=== PATIENT | female | born 1985 | race Caucasian/White ===

== ENCOUNTER 2017-04-09 20:39 | Inpatient (IN) ==
[2017-04-09 21:07] LABS: Bilirubin,Urine Negative (Negative); Blood,Urine Negative (Negative); Clarity,Urine Clear (Clear); Color,Urine Yellow (Yellow); Glucose,Urine (UA) Normal (Normal); Ketones,Urine Negative (Negative); Leukocyte Esterase,Urine Negative (Negative); Nitrite,Urine Negative (Negative); Protein,Urine Negative (Neg-Trace); Specific Gravity,Urine > 1.030 (1.010-1.025); Urobilinogen,Urine Normal (Normal)
[2017-04-09 21:09] LABS: Basophils # 0.1 K/mcL (0.0-0.2); Basophils % 0.4 %; Eosinophils # 0.1 K/mcL (0.0-0.6); Eosinophils % 0.6 %; Hematocrit 42.2 % (35.3-44.9); Hemoglobin 13.8 g/dL (11.5-15.4); Immature Granulocytes % 0.2 % (0-4); Lymphocytes # 5.6 K/mcL (0.6-4.6); Lymphocytes % 40.9 %; Mean Corpuscular HGB Conc 32.7 g/dL (31.6-35.5); Mean Corpuscular Hemoglobin 29.8 pg (28.0-33.3); Mean Corpuscular Volume 91.1 fL (83.0-100.0); Mean Platelet Volume 10.6 fL (9.4-12.4); Monocytes % 6.9 %; Platelet Count 255 K/mcL (140-400); Red Blood Count 4.63 M/mcL (3.82-4.97); Red Cell Distribution Width 13.4 % (11.5-14.5)
[2017-04-09 21:12] LABS: Amphetamine Screen,Urine Negative ng/mL (Cutoff=1000); Barbiturate Screen,Urine Negative ng/mL (Cutoff=200); Benzodiazepines Screen,Urine Negative ng/mL (Cutoff=200); Cannabinoid Screen,Urine Negative ng/mL (Cutoff = 50); Cocaine Screen,Urine Negative ng/mL (Cutoff= 300); Opiate Screen,Urine Negative ng/mL (Cutoff=300); Phencyclidine Screen,Urine Negative ng/mL (Cutoff=25)
[2017-04-09 21:19] LABS: Calcium 9.2 mg/dL (8.6-10.3); Carbon Dioxide 21 mEq/L (23-29); Chloride 114 mEq/L (98-107); Potassium 3.9 mEq/L (3.5-5.1); Sodium 143 mEq/L (136-145)
[2017-04-09 21:24] LABS: Acetaminophen < 1.0 mcg/mL (10-30); Ethanol < 10 mg/dL (0-10); Salicylate < 5.0 mg/dL (15.0-30.0)
[2017-04-09 21:25] LABS: BUN/Creatinine Ratio 23 (6-26); Blood Urea Nitrogen 16 mg/dL (6-20); Glucose 116 mg/dL (70-105); Osmolality,Calculated 298 (280-300); eGFR For African Americans > 60 (> 60); eGFR For Non-African Americans > 60 (> 60)
--- NOTE | 2017-04-10 01:02 | Emergency Department Note ---
Disposition Clinical Impression: Suicidal ideation Disposition: Admitted As Inpatient Condition: Good Referrals: NONE,PCP [Primary Care Provider] - Time of Disposition: 01:34 Psych HPI - General Chief Complaint: ED Psychiatric Symptoms Stated Complaint: SI Time Seen by Provider: 04/09/17 21:44 Source: patient Nursing Notes Reviewed: Yes Vital Signs Reviewed: Yes - History of Present Illness Pt complaint: suicidal ideation If medical clearance, reason: psychiatric condition Onset (ago): month(s) Duration: getting worse History of similar episodes: Yes Improves with: none Worsens with: none Context: significant life stressor Alleged intoxication: No Associated Psychiatric Symptoms: depression, suicidal ideation Associated symptoms: Reports: headache Traumatic symptoms: denies traumatic injury Treatments prior to arrival: none Self harm or harm to others: admits thoughts of self harm, has plan - Related Data Home Medications Medication Instructions Recorded Confirmed Citalopram [CeleXA] 240 mg PO DAILY 09/25/15 09/25/15 Divalproex (12 HR) [Depakote (12 500 mg PO BID 09/25/15 09/25/15 HR)] Gabapentin [Neurontin] 100 mg PO TID 09/25/15 09/25/15 Topiramate [Topamax] 200 mg PO BID 09/25/15 09/25/15 Previous Rx's Medication Instructions Recorded DiphenhydraMINE [Benadryl] 50 mg PO Q6HR #30 capsule 09/25/15 Sulfamethoxazole/Trimeth DS 1 each PO BID #20 tablet 09/25/15 [Bactrim DS] Allergies Allergy/AdvReac Type Severity Reaction Status Date / Time meperidine [From Demerol] Allergy Vomiting Verified 09/25/15 00:03 All systems ED: reviewed and negative except as stated. Review of Systems: As Per HPI Constitutional: Denies: fever, chills Eyes: Denies: vision change ENT ED: Denies: throat pain Cardiovascular: Denies: palpitations Respiratory: Denies: dyspnea Gastrointestinal: Denies: abdominal pain, nausea, vomiting Genitourinary: Denies: dysuria Musculoskeletal: Denies: back pain Integumentary: Denies: rash Neurological: Reports: as per HPI Psychiatric: Reports: as per HPI Endocrine: Denies: fatigue Hematological/Lymphatic: Denies: easy bleeding Allergic/Immunologic: Denies: facial swelling Past Medical History - Past Medical History Medical history: Reports: migraine, seizures Psychiatric history: Reports: anxiety, bipolar, depression, PTSD - Social History Smoking Status: Never smoker Smokeless Tobacco Status: No Alcohol use: Reports: none Drug use: Reports: none Physical Exam GENERAL: alert and oriented, well appearing, no acute distress, HEAD: atraumatic, normocephalic EYE: EOM intact, no conjunctival injection ENT: mucous membranes moist, voice normal in character, nose normal in appearance, no rhinorrhea, oropharynx normal in appearance NECK: supple, normal ROM without stiffness CHEST: symmetric chest wall rise RESPIRATORY: Present: normal lung sounds bilaterally, no respiratory distress CARDIOVASCULAR: Regular rate ABDOMINAL EXAM: No evidence of abdominal discomfort or peritoneal signs; Absent : guarding, rebound, distention EXTREMITIES: Grossly unremarkable on simple inspection; no deformities or decreased ROM; Absent: BLE edema NEURO: alert, moves all extremities, no focal deficits SKIN: warm, dry, intact, normal color for age and race; no concerning rashes or lesions - General Limitations: no limitations General appearance: alert - Psychiatric Psychiatric exam: Present: normal affect, depressed, suicidal ideation Course Vital Signs Temperature 98.2 F 04/09/17 20:40 Pulse Rate 80 04/09/17 20:40 Respiratory Rate 14 04/09/17 20:40 Blood Pressure 148/81 04/09/17 20:40 O2 Sat by Pulse Oximetry 98 04/09/17 20:40 Temperature 97.9 F 04/09/17 22:21 Pulse Rate 74 04/09/17 22:21 Respiratory Rate 16 04/09/17 22:21 Blood Pressure 116/76 04/09/17 22:21 O2 Sat by Pulse Oximetry 92 04/09/17 22:21 Oxygen Delivery Oxygen Delivery Room Air Psych - MDM Narrative Medical decision making narrative: Patient was medically cleared for psychiatric evaluation. Patient was seen and evaluated by when a staff, who discussed patient with on-call psychiatrist Dr. Garner, who advised for inpatient admission for further evaluation and stabilization. Laboratory Tests 04/09/17 04/09/17 04/09/17 20:50 20:50 20:57 WBC 13.7 H RBC 4.63 Hgb 13.8 Hct 42.2 MCV 91.1 MCH 29.8 MCHC 32.7 RDW 13.4 Plt Count 255 MPV 10.6 Immature Gran % 0.2 Seg Neutrophils % 51.0 Lymphocytes % 40.9 Monocytes % 6.9 Eosinophils % 0.6 Basophils % 0.4 Neutrophils # 7.0 Lymphocytes # 5.6 H Monocytes # 1.0 Eosinophils # 0.1 Basophils # 0.1 Sodium Potassium Chloride Carbon Dioxide BUN Creatinine Est GFR ( Amer) Est GFR (Non-Af Amer) BUN/Creatinine Ratio Glucose Calculated Osmolality Calcium Urine Color Yellow Urine Clarity Clear Urine pH 6.0 Ur Specific [place] > 1.030 H Urine Protein Negative Urine Glucose (UA) Normal Urine Ketones Negative Urine Blood Negative Urine Nitrite Negative Urine Bilirubin Negative Urine Urobilinogen Normal Ur Leukocyte Esterase Negative Salicylates Urine Opiates Screen Negative Acetaminophen Ur Barbiturates Screen Negative Valproic Acid Ur Phencyclidine Scrn Negative Ur Amphetamines Screen Negative U Benzodiazepines Scrn Negative Urine Cocaine Screen Negative U Marijuana (THC) Screen Negative Ethyl Alcohol 04/09/17 04/09/17 20:57 20:57 WBC RBC Hgb Hct MCV MCH MCHC RDW Plt Count MPV Immature Gran % Seg Neutrophils % Lymphocytes % Monocytes % Eosinophils % Basophils % Neutrophils # Lymphocytes # Monocytes # Eosinophils # Basophils # Sodium 143 Potassium 3.9 Chloride 114 H Carbon Dioxide 21 L BUN 16 Creatinine 0.70 Est GFR ( Amer) > 60 Est GFR (Non-Af Amer) > 60 BUN/Creatinine Ratio 23 Glucose 116 H Calculated Osmolality 298 Calcium 9.2 Urine Color Urine Clarity Urine pH Ur Specific [place] Urine Protein Urine Glucose (UA) Urine Ketones Urine Blood Urine Nitrite Urine Bilirubin Urine Urobilinogen Ur Leukocyte Esterase Salicylates < 5.0 L Urine Opiates Screen Acetaminophen < 1.0 L Ur Barbiturates Screen Valproic Acid 2 L Ur Phencyclidine Scrn Ur Amphetamines Screen U Benzodiazepines Scrn Urine Cocaine Screen U Marijuana (THC) Screen Ethyl Alcohol < 10 - Lab Data Result diagrams: 04/09/17 20:57 04/09/17 20:57 Lab Results 04/09/17 04/09/17 04/09/17 Range/Units 20:50 20:50 20:57 WBC 13.7 H (4.3-11.1) K/mcL RBC 4.63 (3.82-4.97) M/mcL Hgb 13.8 (11.5-15.4) g/dL Hct 42.2 (35.3-44.9) % MCV 91.1 (83.0-100.0) fL MCH 29.8 (28.0-33.3) pg MCHC 32.7 (31.6-35.5) g/dL RDW 13.4 (11.5-14.5) % Plt Count 255 (140-400) K/mcL MPV 10.6 (9.4-12.4) fL Immature Gran % 0.2 (0-4) % Seg Neutrophils % 51.0 % Lymphocytes % 40.9 % Monocytes % 6.9 % Eosinophils % 0.6 % Basophils % 0.4 % Neutrophils # 7.0 (1.6-8.9) K/mcL Lymphocytes # 5.6 H (0.6-4.6) K/mcL Monocytes # 1.0 (0.0-1.3) K/mcL Eosinophils # 0.1 (0.0-0.6) K/mcL Basophils # 0.1 (0.0-0.2) K/mcL Sodium (136-145) mEq/L Potassium (3.5-5.1) mEq/L Chloride (98-107) mEq/L Carbon Dioxide (23-29) mEq/L BUN (6-20) mg/dL Creatinine (0.60-1.20) mg/dL Est GFR ( Amer) (> 60) Est GFR (Non-Af Amer) (> 60) BUN/Creatinine Ratio (6-26) Glucose (70-105) mg/dL Calculated Osmolality (280-300) Calcium (8.6-10.3) mg/dL Urine Color Yellow (Yellow) Urine Clarity Clear (Clear) Urine pH 6.0 (5.0-8.0) pH Units Ur Specific [place] > 1.030 H (1.010-1.025) Urine Protein Negative (Neg-Trace) mg/dL Urine Glucose (UA) Normal (Normal) mg/dL Urine Ketones Negative (Negative) mg/dL Urine Blood Negative (Negative) Urine Nitrite Negative (Negative) Urine Bilirubin Negative (Negative) Urine Urobilinogen Normal (Normal) mg/dL Ur Leukocyte Esterase Negative (Negative) Salicylates (15.0-30.0) mg/dL Urine Opiates Screen Negative (Vihrzi=985) ng/mL Acetaminophen (10-30) mcg/mL Ur Barbiturates Screen Negative (Hjztme=884) ng/mL Valproic Acid (50-100) mcg/mL Ur Phencyclidine Scrn Negative (Cutoff=25) ng/mL Ur Amphetamines Screen Negative (Iweqcf=8328) ng/mL U Benzodiazepines Scrn Negative (Dwbvge=154) ng/mL Urine Cocaine Screen Negative (Cutoff= 300) ng/mL U Marijuana (THC) Screen Negative (Cutoff = 50) ng/mL Ethyl Alcohol (0-10) mg/dL 04/09/17 04/09/17 Range/Units 20:57 20:57 WBC (4.3-11.1) K/mcL RBC (3.82-4.97) M/mcL Hgb (11.5-15.4) g/dL Hct (35.3-44.9) % MCV (83.0-100.0) fL MCH (28.0-33.3) pg MCHC (31.6-35.5) g/dL RDW (11.5-14.5) % Plt Count (140-400) K/mcL MPV (9.4-12.4) fL Immature Gran % (0-4) % Seg Neutrophils % % Lymphocytes % % Monocytes % % Eosinophils % % Basophils % % Neutrophils # (1.6-8.9) K/mcL Lymphocytes # (0.6-4.6) K/mcL Monocytes # (0.0-1.3) K/mcL Eosinophils # (0.0-0.6) K/mcL Basophils # (0.0-0.2) K/mcL Sodium 143 (136-145) mEq/L Potassium 3.9 (3.5-5.1) mEq/L Chloride 114 H (98-107) mEq/L Carbon Dioxide 21 L (23-29) mEq/L BUN 16 (6-20) mg/dL Creatinine 0.70 (0.60-1.20) mg/dL Est GFR ( Amer) > 60 (> 60) Est GFR (Non-Af Amer) > 60 (> 60) BUN/Creatinine Ratio 23 (6-26) Glucose 116 H (70-105) mg/dL Calculated Osmolality 298 (280-300) Calcium 9.2 (8.6-10.3) mg/dL Urine Color (Yellow) Urine Clarity (Clear) Urine pH (5.0-8.0) pH Units Ur Specific [place] (1.010-1.025) Urine Protein (Neg-Trace) mg/dL Urine Glucose (UA) (Normal) mg/dL Urine Ketones (Negative) mg/dL Urine Blood (Negative) Urine Nitrite (Negative) Urine Bilirubin (Negative) Urine Urobilinogen (Normal) mg/dL Ur Leukocyte Esterase (Negative) Salicylates < 5.0 L (15.0-30.0) mg/dL Urine Opiates Screen (Nkzjlu=732) ng/mL Acetaminophen < 1.0 L (10-30) mcg/mL Ur Barbiturates Screen (Ofugfv=421) ng/mL Valproic Acid 2 L (50-100) mcg/mL Ur Phencyclidine Scrn (Cutoff=25) ng/mL Ur Amphetamines Screen (Ohkifs=7127) ng/mL U Benzodiazepines Scrn (Bkknmq=973) ng/mL Urine Cocaine Screen (Cutoff= 300) ng/mL U Marijuana (THC) Screen (Cutoff = 50) ng/mL Ethyl Alcohol < 10 (0-10) mg/dL Psychiatric Medical Clearance - Medical Clearance Checklist Medical History: Insect bite (Acute) No Social History Section defined Current Vitals: Last Vital Signs Temp 97.9 F 04/09/17 22:21 Pulse 74 04/09/17 22:21 Resp 16 04/09/17 22:21 BP 116/76 04/09/17 22:21 Pulse Ox 92 04/09/17 22:21 Psychiatric Lab Panel: Drug Levels and Toxicity 04/09/17 04/09/17 20:50 20:57 Urine Opiates Screen Negative Acetaminophen < 1.0 L Ur Barbiturates Screen Negative Ur Phencyclidine Scrn Negative Ur Amphetamines Screen Negative U Benzodiazepines Scrn Negative Urine Cocaine Screen Negative U Marijuana (THC) Screen Negative Ethyl Alcohol < 10 Abnormal Labs: Abnormal lab results WBC 13.7 K/mcL (4.3-11.1) H 04/09/17 20:57 Lymphocytes # 5.6 K/mcL (0.6-4.6) H 04/09/17 20:57 Chloride 114 mEq/L (98-107) H 04/09/17 20:57 Carbon Dioxide 21 mEq/L (23-29) L 04/09/17 20:57 Glucose 116 mg/dL (70-105) H 04/09/17 20:57 Ur Specific [place] > 1.030 (1.010-1.025) H 04/09/17 20:50 Salicylates < 5.0 mg/dL (15.0-30.0) L 04/09/17 20:57 Acetaminophen < 1.0 mcg/mL (10-30) L 04/09/17 20:57 Valproic Acid 2 mcg/mL (50-100) L 04/09/17 20:57 Statement of Medical Clearance: I have evaluated the patient, reviewed diagnostic information, and certify that the patient's medical condition is sufficiently stable that transfer to the psychiatric unit does not pose a significant risk of deterioration.
[2017-04-10] MEDS ORDERED: Haloperidol Lactate 5 MG/ML VIAL IM PRN (01:19)
[2017-04-10] MEDS ORDERED: Mag Hydrox/Al Hydrox/Simeth 30 ML UDC PO PRN (01:19)
[2017-04-10] MEDS ORDERED: Acetaminophen 325 MG TABLET PO PRN (01:19)
[2017-04-10] MEDS ORDERED: *HR* LORazepam 2 MG/ML VIAL IM PRN (01:19)
[2017-04-10] MEDS ORDERED: MOM Conc 10 ML UD.LIQ PO PRN (01:19)
[2017-04-10] MEDS ORDERED: *HR* LORazepam 1 MG TABLET PO PRN (01:19)
[2017-04-10] MEDS: hydrOXYzine pamoate 25 MG CAPSULE PO PRN (02:26)
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
[2017-04-10] MEDS: FLUoxetine 20 MG CAPSULE PO SCH (13:34)
[2017-04-10] MEDS: Ibuprofen 400 MG TABLET PO PRN (15:18)
[2017-04-10] MEDS: Topiramate 100 MG TABLET PO SCH (21:01)
[2017-04-10] MEDS: Divalproex (24 HR) 500 MG TABLET PO SCH (21:01)
[2017-04-10] MEDS: traZODone 50 MG TABLET PO PRN (21:03)
[2017-04-11] MEDS: Topiramate 100 MG TABLET PO SCH ×2 (08:48→20:53)
[2017-04-11] MEDS: FLUoxetine 20 MG CAPSULE PO SCH (08:48)
--- NOTE | 2017-04-11 10:33 | Psychiatry Progress Note ---
Date of Encounter: 04/11/17 Time of Encounter: 10:30 Subjective Interval history: Patient tells me today she is "extremely tired". We discussed how her Depakote was restarted last night and the possibility that she may be tired from that. ( She had reported that one of the reasons she stopped taking the Depakote, which she takes for seizures, was fatigue.) She was starter at a lower dose of 1000 mg instead of 1500 mg. She states she might just be adjusting to the medication changes and it might take time. She denies any other adverse side effects. She denies any active suicidal ideation or homicidal ideation. She still feels as depressed, but not wanting to actively hurt herself. She states she woke up several times during the night sweating. There is pending lab work of her thyroid and chemistry panel to see if some of the issue might be medically related to her thyroid. She would like to continue the medications where they are for now and to see if her body adapts; her energy level improves as well as her attention and concentration and desire for activities. She was encouraged to participate in the groups as much she could today, to be out of bed as she might sleep better tonight. She said she would do that. No auditory or visual hallucinations. No sign of active psychosis. Objective: Exam Patient orientation: Yes Person, Yes Time, Yes Place, Yes Circumstance Level of alertness: Sedated Patient appearance: Appropriate Behavior: calm Psychomotor activity: Slowed Eye contact: Maintains Eye Contact Mood description: Depressed Affect description: congruent with mood Speech pattern: Normal rate, Normal rhythm, Normal tone, Appropriate Speech volume: Normal Thought process: Intact, Linear, Goal Oriented Thought content: Yes Suicidal ideation (decreased) Judgment: Fair Insight: Partial Results - Vital Signs Vital Signs: Temp Pulse Resp BP Pulse Ox 96.4 F L 71 16 117/81 92 04/11/17 09:00 04/11/17 09:00 04/11/17 09:00 04/11/17 09:00 04/09/17 22:21 Assessment and Plan (1) Bipolar 1 disorder, depressed Current visit: Yes Status: Acute Plan: Continue hospitalization, Close observation, Suicide Precautions per unit protocol, Encourage participation in unit milieu, Group Therapy Additional Plan: Pending lab: TSH, TYRESE Risks, benefits, side effects, alternatives discussed w/pt: Yes (Continue Prozac targeting depression, Depakote ER 1000mg) Patient agreeable to treatment: Yes (2) PTSD (post-traumatic stress disorder) Current visit: Yes Status: Acute Risks, benefits, side effects, alternatives discussed w/pt: Yes Patient agreeable to treatment: Yes Consult Discharge Plan - Plan Referrals: [facility] [Outside] - 04/18/17 11:00 am (The above appointment is with Conchis Ely to open your case a client. After your case is opened, you will recieve a return counseling appointment, and an appointment with the psychiatric prescriber. You will be able to see the psychiatric prescriber within 2-3 weeks of your case being opened.)
[2017-04-11] MEDS: Ibuprofen 400 MG TABLET PO PRN (15:35)
[2017-04-11] MEDS: Divalproex (24 HR) 500 MG TABLET PO SCH (20:53)
[2017-04-11] MEDS: traZODone 50 MG TABLET PO PRN (20:54)
[2017-04-11] MEDS: hydrOXYzine pamoate 25 MG CAPSULE PO PRN (20:58)
[2017-04-12] MEDS: Topiramate 100 MG TABLET PO SCH ×2 (08:36→21:28)
[2017-04-12] MEDS: FLUoxetine 20 MG CAPSULE PO SCH (08:36)
[2017-04-12 12:54] LABS: Alanine Aminotransferase 41 Units/L (7-52); Albumin 4.1 g/dL (3.5-5.7); Albumin/Globulin Ratio 1.3 (1.1-2.2); Alkaline Phosphatase 75 Units/L (34-104); Aspartate Amino Transferase 22 Units/L (13-39); BUN/Creatinine Ratio 21 (6-26); Bilirubin,Total 0.3 mg/dL (0.3-1.0); Blood Urea Nitrogen 15 mg/dL (6-20); Calcium 9.2 mg/dL (8.6-10.3); Carbon Dioxide 23 mEq/L (23-29); Chloride 113 mEq/L (98-107); Globulin 3.2 g/dL (2.4-3.5); Glucose 166 mg/dL (70-105); Osmolality,Calculated 295 (280-300); Potassium 4.1 mEq/L (3.5-5.1); Sodium 140 mEq/L (136-145); Total Protein 7.3 g/dL (6.4-8.9); eGFR For African Americans > 60 (> 60); eGFR For Non-African Americans > 60 (> 60)
--- NOTE | 2017-04-12 13:46 | Psychiatry Progress Note ---
Date of Encounter: 04/12/17 Time of Encounter: 13:20 Subjective Interval history: Patient tells me that she is still "tired". She had her blood work completed; her TSH is within normal limits and shows shows low-level valproic acid in her system. She denies any further adverse side effects. She feels her depression might be slightly improved. She went to groups yesterday had a visit with her mother last night. She feels that the Depakote is most likely slowing her down. (But she needs this for his seizure disorder.) She denies any nightmares. She states she is having dreams and she may have slept better. She went back to bed after having lunch today. I encouraged her to still try to go to groups. She took the low dose of Vistaril for anxiety and she stated that helped, she will continue to do that. I explained to her that that too might slow her down and make her feel more tired. She does not want to change any of her other medications at this time as she fills her depression is improving. We will continue to watch and wait. She denies active suicidal or homicidal ideation at this time. There is no auditory or visual hallucinations or psychosis. Objective: Exam Patient orientation: Yes Person, Yes Time, Yes Place, Yes Circumstance Level of alertness: Alert Patient appearance: Appropriate Behavior: calm Psychomotor activity: Slowed Eye contact: Maintains Eye Contact Mood description: Depressed Affect description: congruent with mood Speech pattern: Normal rate, Normal rhythm, Normal tone, Appropriate Speech volume: Normal Thought process: Intact, Logical, Linear, Goal Oriented Thought content: Yes Intact Judgment: Fair Insight: Partial Results - Vital Signs Vital Signs: Temp Pulse Resp BP Pulse Ox 97.2 F L 73 16 126/86 92 04/12/17 09:00 04/12/17 09:00 04/12/17 09:00 04/12/17 09:00 04/09/17 22:21 - Labs Labs: Laboratory Results - last 24 hr 04/12/17 04/12/17 04/12/17 11:57 11:57 11:57 Sodium 140 Potassium 4.1 Chloride 113 H Carbon Dioxide 23 BUN 15 Creatinine 0.73 Est GFR ( Amer) > 60 Est GFR (Non-Af Amer) > 60 BUN/Creatinine Ratio 21 Glucose 166 H Calculated Osmolality 295 Calcium 9.2 Total Bilirubin 0.3 AST 22 ALT 41 Alkaline Phosphatase 75 Serum Total Protein 7.3 Albumin 4.1 Globulin 3.2 Albumin/Globulin Ratio 1.3 TSH 2.095 Valproic Acid 15 L Assessment and Plan (1) Bipolar 1 disorder, depressed Current visit: Yes Status: Acute Plan: Continue hospitalization, Close observation, Suicide Precautions per unit protocol, Encourage participation in unit milieu, Group Therapy, Monitor sleep Risks, benefits, side effects, alternatives discussed w/pt: Yes (Continue medications as written) Patient agreeable to treatment: Yes (2) PTSD (post-traumatic stress disorder) Current visit: Yes Status: Acute Risks, benefits, side effects, alternatives discussed w/pt: Yes Patient agreeable to treatment: Yes Consult Discharge Plan - Plan Referrals: [facility] [Outside] - 04/18/17 11:00 am (The above appointment is with Conchis Ely to open your case a client. After your case is opened, you will recieve a return counseling appointment, and an appointment with the psychiatric prescriber. You will be able to see the psychiatric prescriber within 2-3 weeks of your case being opened.)
[2017-04-12] MEDS: Divalproex (24 HR) 500 MG TABLET PO SCH (21:28)
[2017-04-12] MEDS: traZODone 50 MG TABLET PO PRN (21:28)
[2017-04-12] MEDS: hydrOXYzine pamoate 25 MG CAPSULE PO PRN (21:28)
[2017-04-13] MEDS: FLUoxetine 20 MG CAPSULE PO SCH (08:44)
[2017-04-13] MEDS: Topiramate 100 MG TABLET PO SCH ×2 (08:44→20:15)
--- NOTE | 2017-04-13 11:00 | Psychiatry Progress Note ---
Date of Encounter: 04/13/17 Time of Encounter: 10:50 Subjective Interval history: When I asked the patient how she is doing she stated "At the moment, I'm fine, but last night I lost it." She went on to explain that there is another patient on the unit is making mean comments to her and the other patients; putting them down and telling them that he is not like them and he does not need to be here. She states that she felt very stressed and was very hurt and angry. Then when she went to get a PRN medication from staff, it was difficult to do so as she felt staff was treating her differently. Specifically, this other patient was taking all the staff's time and she could not get her PRN the way she wanted. She said she felt scared and irritated by this patient ended up going to her room. She is going to talk to the rec therapist about it today and process her feelings. She states that it interfered with her sleep. We also talked about her medication compliance. Her thyroid appears to be doing fine; normal lab. She does not take her outpatient medications on a regular basis which I explained to her was not good in managing her and keeping her stable; in regards to her having seizures, mood etc. She states that she understands that she is not compliant and that she needs to take them routinely and she will try. Currently she is feeling depressed after what happened last night. She denies any suicidal/homicidal ideation. She is going to avoid that other patient today if he is out on the unit. Staff is aware of the situation now. She denies any auditory or visual hallucinations. She wants to continue her medications as written. Objective: Exam Patient orientation: Yes Person, Yes Time, Yes Place, Yes Circumstance Level of alertness: Alert Patient appearance: Appropriate Behavior: anxious Psychomotor activity: Normal Eye contact: Maintains Eye Contact Mood description: Angry Affect description: congruent with mood Speech pattern: Normal rate, Normal rhythm, Normal tone, Appropriate Speech volume: Normal Thought process: Intact, Logical, Linear, Goal Oriented Thought content: Yes Intact Judgment: Fair Insight: Partial Results - Vital Signs Vital Signs: Temp Pulse Resp BP Pulse Ox 97.8 F 83 18 110/73 92 04/13/17 09:00 04/13/17 09:00 04/13/17 09:00 04/13/17 09:00 04/09/17 22:21 - Labs Labs: Laboratory Results - last 24 hr 04/12/17 04/12/17 04/12/17 11:57 11:57 11:57 Sodium 140 Potassium 4.1 Chloride 113 H Carbon Dioxide 23 BUN 15 Creatinine 0.73 Est GFR ( Amer) > 60 Est GFR (Non-Af Amer) > 60 BUN/Creatinine Ratio 21 Glucose 166 H Calculated Osmolality 295 Calcium 9.2 Total Bilirubin 0.3 AST 22 ALT 41 Alkaline Phosphatase 75 Serum Total Protein 7.3 Albumin 4.1 Globulin 3.2 Albumin/Globulin Ratio 1.3 TSH 2.095 Valproic Acid 15 L Assessment and Plan (1) Bipolar 1 disorder, depressed Current visit: Yes Status: Acute Plan: Continue hospitalization, Close observation, Suicide Precautions per unit protocol, Encourage participation in unit milieu, Group Therapy, Monitor sleep Risks, benefits, side effects, alternatives discussed w/pt: Yes (Continue medications as written) Patient agreeable to treatment: Yes (2) PTSD (post-traumatic stress disorder) Current visit: Yes Status: Acute Risks, benefits, side effects, alternatives discussed w/pt: Yes Patient agreeable to treatment: Yes Consult Discharge Plan - Plan Referrals: [facility] [Outside] - 04/18/17 11:00 am (The above appointment is with Conchis Ely to open your case a client. After your case is opened, you will recieve a return counseling appointment, and an appointment with the psychiatric prescriber. You will be able to see the psychiatric prescriber within 2-3 weeks of your case being opened.)
[2017-04-13] MEDS: traZODone 50 MG TABLET PO PRN (20:15)
[2017-04-13] MEDS: Divalproex (24 HR) 500 MG TABLET PO SCH (20:15)
[2017-04-14] MEDS: Topiramate 100 MG TABLET PO SCH ×2 (08:14→20:21)
[2017-04-14] MEDS: FLUoxetine 20 MG CAPSULE PO SCH (08:14)
--- NOTE | 2017-04-14 11:53 | Psychiatry Progress Note ---
Date of Encounter: 04/14/17 Time of Encounter: 09:00 Subjective Interval history: Interval history: Patient seen and evaluated this morning during rounds by a multidisciplinary treatment team. She was calm, cooperative and well related. There were no reported overnight event. She continued to endorsed some depressive symptoms. Reported minimal effect of current dose of Prozac. Patient explained she is not compliant with her Depakote due to severe fatigue after taking it and wish to switch to a different medications. She is currently on Depakote Er 500mg at bedtime with a Depakote level of 15 on 04/12. She reported compliance with her other medications and denied any noted side effects. She is sleeping and eating well. Patient reported her most recent seizure episode was less a than a month ago. She agreed to follwo up with her neurologist after discharge. On review of symptoms, she denied other mood/anxiety or psychotic symptoms including VH/AH /SI?HI. Patient agreed to an increase dose of Prozac to 40mg to target underlying depressives symptoms Review of Systems Psychiatric: Reports: depression, anhedonia Objective: Exam Patient orientation: Yes Person, Yes Time, Yes Place Level of alertness: Alert, Follows commands Patient appearance: Appropriate Behavior: calm Psychomotor activity: Normal Eye contact: Maintains Eye Contact Mood description: Depressed Affect description: congruent with mood Speech pattern: Normal rate, Normal rhythm, Normal tone Speech volume: Normal Thought process: Logical, Linear, Goal Oriented Thought content: Yes Intact Judgment: Fair Insight: Full Results - Vital Signs Vital Signs: Temp Pulse Resp BP Pulse Ox 97.4 F L 77 12 109/80 92 04/14/17 08:35 04/14/17 08:35 04/14/17 08:35 04/14/17 08:35 04/09/17 22:21 Consult Discharge Plan - Plan Referrals: [facility] [Outside] - 04/18/17 11:00 am (The above appointment is with Conchis Ely to open your case a client. After your case is opened, you will recieve a return counseling appointment, and an appointment with the psychiatric prescriber. You will be able to see the psychiatric prescriber within 2-3 weeks of your case being opened.)
[2017-04-14] MEDS: hydrOXYzine pamoate 25 MG CAPSULE PO PRN (18:06)
[2017-04-14] MEDS: traZODone 50 MG TABLET PO PRN (20:21)
[2017-04-14] MEDS: Divalproex (24 HR) 500 MG TABLET PO SCH (20:21)
[2017-04-15] MEDS: Topiramate 100 MG TABLET PO SCH ×2 (08:12→20:43)
[2017-04-15] MEDS: FLUoxetine 20 MG CAPSULE PO SCH (08:12)
--- NOTE | 2017-04-15 13:37 | Psychiatry Progress Note ---
Date of Encounter: 04/15/17 Time of Encounter: 01:30 Subjective Interval history: The patient came to see me. She notes that she may have taken the Seroquel at night and now feels tired she has felt dizzy she has felt sedated she did not feel like getting up for breakfast. The patient still has depressive symptoms feels low she does not have a plan for suicide on the unit. The patient now is willing to go and follow-up with outpatient treatment. But nonetheless this is still not secured. The patient living with her mother. She has no source of income and some difficulties in interpersonal relationships remember poor. The patient reports that she had elevated blood sugar previously. The patient's adherence to Depakote was question based on blood level valproic acid. The patient's been on valproic acid for 1 week and should be at or near steady state valproic acid level. The patient has a cushingoid appearance with mood facies [place] [employer] obesity and comparatively thin legs. She is not aware that she is ever had a cortisol checked Review of Systems Constitutional: Reports: weakness Gastrointestinal: Reports: nausea Musculoskeletal: Reports: myalgia Neurological: Reports: headache, weakness Psychiatric: Reports: depression, suicidal ideation, anhedonia Objective: Exam Patient orientation: Yes Person, Yes Time, Yes Place Level of alertness: Sedated Patient appearance: Appropriate Behavior: guarded Psychomotor activity: Slowed Eye contact: Maintains Eye Contact Mood description: Depressed Affect description: congruent with mood Speech pattern: Normal rate, Normal rhythm Speech volume: Soft/Quiet Thought process: Intact, Logical Thought content: Yes Suicidal ideation Judgment: Fair Insight: Partial Results - Vital Signs Vital Signs: Temp Pulse Resp BP Pulse Ox 98.3 F 67 14 110/70 92 04/15/17 10:40 04/15/17 10:40 04/15/17 10:40 04/15/17 10:40 04/09/17 22:21 Assessment and Plan (1) Bipolar 1 disorder, depressed Current visit: Yes Status: Acute Plan: Continue hospitalization, Close observation, Suicide Precautions per unit protocol Risks, benefits, side effects, alternatives discussed w/pt: Yes ( Continue medications as written) Patient agreeable to treatment: Yes (2) Suicidal ideation Current visit: Yes Status: Acute Plan: Close observation, Suicide Precautions per unit protocol Risks, benefits , side effects, alternatives discussed w/pt: Yes Patient agreeable to treatment: Yes (3) PTSD (post-traumatic stress disorder) Current visit: Yes Status: Chronic Plan: Continue hospitalization, Secure weapons, Family/Supportive other meeting Risks, benefits, side effects, alternatives discussed w/pt: Yes Patient agreeable to treatment: Yes Consult Discharge Plan - Plan Referrals: [facility] [Outside] - 04/18/17 11:00 am (The above appointment is with Conchis Ely to open your case a client. After your case is opened, you will recieve a return counseling appointment, and an appointment with the psychiatric prescriber. You will be able to see the psychiatric prescriber within 2-3 weeks of your case being opened.)
[2017-04-15] MEDS: Ibuprofen 400 MG TABLET PO PRN (15:08)
[2017-04-15] MEDS: hydrOXYzine pamoate 25 MG CAPSULE PO PRN ×2 (17:28→20:46)
[2017-04-15] MEDS: traZODone 50 MG TABLET PO SCH (20:45)
[2017-04-15] MEDS: Divalproex (24 HR) 500 MG TABLET PO SCH (20:46)
[2017-04-16] MEDS: FLUoxetine 20 MG CAPSULE PO SCH (08:37)
[2017-04-16] MEDS: Topiramate 100 MG TABLET PO SCH ×2 (08:37→21:15)
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
[2017-04-16] MEDS: hydrOXYzine pamoate 25 MG CAPSULE PO PRN (18:32)
[2017-04-16] MEDS ORDERED: Divalproex (24 HR) 500 MG TABLET PO SCH (21:00)
[2017-04-16] MEDS: traZODone 50 MG TABLET PO SCH (21:15)
[2017-04-17] MEDS: FLUoxetine 20 MG CAPSULE PO SCH (08:33)
[2017-04-17] MEDS: Topiramate 100 MG TABLET PO SCH (08:33)
[2017-04-17 09:42] LABS: Hemoglobin A1C 6.6 %
[2017-04-17 10:07] VITALS: BP 113/77
--- NOTE | 2017-04-17 13:37 | Discharge Summary ---
Date of Encounter: 04/17/17 Time of Encounter: 13:30 Diagnosis - Discharge Diagnosis (1) Bipolar 1 disorder, depressed Status: Acute (2) Suicidal ideation Status: Resolved (3) PTSD (post-traumatic stress disorder) Status: Chronic (4) Diabetes Status: Chronic Qualifiers: Diabetes mellitus type: type 1 Diabetes mellitus complication status: without complication Qualified Code(s): E10.9 - Type 1 diabetes mellitus without complications Medications - Discharge Medications Prescriptions: Divalproex (24 HR) [Depakote ER (24 HR)] 1,000 mg PO HS 30 Days #60 tab.er.24h FLUoxetine HCl [Prozac] 40 mg PO DAILY 30 Days #30 capsule hydrOXYzine pamoate [HydrOXYzine Pamoate] 25 mg PO TID PRN 30 Days #90 capsule PRN Reason: Anxiety Pyridoxine HCl [Vitamin B-6] 1 tab PO DAILY 30 Days #30 tablet Topiramate [Topamax] 200 mg PO BID 30 Days #120 tablet traZODone [TraZODone] 100 mg PO HS 30 Days #30 tablet Liraglutide [Victoza 3-Bear] 18 mg SQ AD 04/10/17 [History] Loratadine [Claritin] 10 mg PO DAILY 04/10/17 [History] Divalproex (24 HR) [Depakote ER (24 HR)] 1,000 mg PO HS 30 Days #60 tab.er.24h 04/17/17 [Rx] FLUoxetine HCl [Prozac] 40 mg PO DAILY 30 Days #30 capsule 04/17/17 [Rx] Pyridoxine HCl [Vitamin B-6] 1 tab PO DAILY 30 Days #30 tablet 04/17/17 [Rx] Topiramate [Topamax] 200 mg PO BID 30 Days #120 tablet 04/17/17 [Rx] hydrOXYzine pamoate [HydrOXYzine Pamoate] 25 mg PO TID PRN 30 Days #90 capsule 04/17/17 [Rx] traZODone [TraZODone] 100 mg PO HS 30 Days #30 tablet 04/17/17 [Rx] 3 Allergy/AdvReac Type Severity Reaction Status Date / Time meperidine [From Demerol] Allergy Vomiting Verified 09/25/15 00:03 Results Procedures and tests throughout hospitalization: Completed Lab Orders Category Date Time Status Chem 13 [Comprehensive Metabolic Panel] Routine Lab 04/12/17 11:57 Completed Cortisol,Random Routine Lab 04/15/17 13:50 Completed Glucose AM 0400 Lab 04/17/17 08:03 Completed Hgb A1C AM 0400 Lab 04/17/17 08:03 Completed TSH [Thyroid Stimulating Hormone] Routine Lab 04/12/17 11:57 Completed Valproate Routine Lab 04/12/17 11:57 Completed Valproate Routine Lab 04/15/17 13:50 Completed Provider Date of admission: 04/10/17 01:16 Primary care physician: [place] Discharging clinician: Stoney Marquez Assessment and Plan - Patient/Caregiver Discharge Instructions Activity: resume usual activities as tolerated Diet: regular diet Additional Instructions: no concentated sweets - Follow up Plan Follow up with: [facility] [Outside] - 04/18/17 11:00 am (The above appointment is with Conchis Ely to open your case a client. After your case is opened, you will recieve a return counseling appointment, and an appointment with the psychiatric prescriber. You will be able to see the psychiatric prescriber within 2-3 weeks of your case being opened.) Functional capacity at discharge: independent ambulation Overall status at discharge: patient is back to baseline Disposition: Home, Self-Care Hospital Course Hospital course: Ms. Rocha is a 31 year old female Patient was admitted for bipolar depression and PTSD. Initially her antidepressants were changed. Specifically the patient's Depakote was found to be at 33 NG/mL on a dose of 500 mg per day. Therefore her dose was increased to 1000 mg. And compared against her weight in kilograms. The patient is also on topiramate and the possibility of a drug drug interaction was discussed the patient reported sedation once the Depakote was increased although she felt that it may be tolerable. The patient's Lexapro was changed Prozac 40 mg per day this is based on her previously favorable response. The patient had a history of hypothyroidism but a TSH was within normal limits and her Synthroid was discontinued. This will require further follow-up. 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 Further evaluation and testing may be necessary as the patient has hyperglycemia. Patient had diabetes mellitus and was on Victosa at home but was taken off this in the hospital. During this period of time the patient had periods of hyperglycemia both laboratory studies next attacks the hemoglobin A1c was 6.6 prior to discharge. The patient planned to restart the Pitocin with return to her home. She also planned to switch from regular Mountain Dew to diet Mountain Dew in order to reduce her caloric intake. She plans to follow-up with her doctor Dr. Yissel Jolley of [facility] The patient is status post hysterectomy and she did discuss the possibility of estrogen replacement previously she was on estradiol patch but broke out to the patch or its contents and has not been placed on estrogen replacement since. She is no follow-up with her doctor did the hysterectomy could. The patient was able to address some of the psychosocial stressors. She was in contact with her biological father and her mother came to visit on the unit. Patient identified some difficulties in relationships. The patient was also hospitalized for PTSD and was able to address some of these issues in group and individual counseling she no longer had suicidal ideation on the day of discharge was felt to be stable to pursue patent in outpatient counseling and medication management regimen Time spent discussing smoking cessation with patient: 3 to 10 minutes - Time Spent with Patient Total time spent providing and/or coordinating discharge services: Less than 30 minutes Quality - Multiple Antipsychotics Patient discharged on 2 or more antipsychotic medications: No Procedures - Procedures Procedures: Medication Management, Crisis Stabilization, Supportive Therapy, Group Therapy, Psychoeducational Therapy Mental Status Exam - Mental Status Exam Patient orientation: Yes Person, Yes Time, Yes Place Level of alertness: Alert Patient appearance: Appropriate, Well Groomed Behavior: calm, cooperative Psychomotor activity: Normal Eye contact: Maintains Eye Contact Mood description: Euthymic/stable Affect description: congruent with mood, full range Speech pattern: Normal rate, Normal rhythm, Normal tone Speech Volume: Normal Thought process: Linear, Goal Oriented Thought Content: No Suicidal ideation, No Homicidal ideation, No Overt delusions Perceptual Disturbances: No Auditory hallucinations, No Visual hallucinations Judgment: Good Insight: Full
== END 2017-04-17 15:30 | disposition home or self-care (01) | DRG 753 ==
LOC: EMEROO 20:39 → SUATTDRO 04-10 01:16 → 1ANU 04-10 01:16
PROVIDERS: ADMIT Psychiatry & Neurology Psychiatry; ATTEND Psychiatry & Neurology Forensic Psychiatry